=== PATIENT | female | born 1960 | race Caucasian/White ===

== ENCOUNTER 2018-02-09 08:37 | Day surgery (SDC) | payer BC ==
[~2018-02-09 08:37] MED LIST: Acetaminophen TAB* 325 MG PO PRN; Buffered Lidocaine 0.9% SYRIN* 5 ML/SYR SYRINGE INTRADERM ONE; Cyclopentolate 1% OPTH.SOL* 2 ML BTL ONE; Ketorolac 0.5% OPHTH (NF) 0.5 % 5 ML BTL ONE; Lidocaine 1%* 5 ML VIAL ONE; Neomycin/Polymy/Dex OPHTH.OIN* 3.5 GM ONE; Phenylephrine 2.5% OPTH.SOL* 2 ML BTL ONE; Povidone Iodine 5% OPTH* 30 ML BTL ONE; Tetracaine 0.5% OPTH.SOL 4 ML* 1 DROP BTL ONE; Tropicamide 1% OPTH.SOL* BTL ONE; Trypan Blue 0.06% SOL* 0.5 ML BTL ONE; acetaZOLAMIDE TAB* 250 MG ONE
[2018-02-09] MEDS ORDERED: Midazolam* 1 MG/ML 5 ML VIAL (5 MG) ONE (10:16)
[2018-02-09 11:29] VITALS: BP 142/68
--- NOTE | 2018-02-10 08:00 | OP ---
DATE OF OPERATION: 02/09/[address] - [facility] DATE OF : 58 SURGEON: Maciel Martinez MD. ANESTHESIA: Monitored anesthesia care. PRE-OP DIAGNOSIS: Mature cataract, right eye. POST-OP DIAGNOSIS: Mature cataract, right eye. OPERATIVE PROCEDURE: Extracapsular cataract extraction of the right eye with intraocular lens implant. IMPLANTS: SN60WF 20.5 diopter lens to the right eye. COMPLICATIONS: None. DESCRIPTION OF PROCEDURE: The patient was given phenylephrine 2.5% and cyclopentolate 1% eye drops to the operative eye in the preoperative area. The patient was brought to the operating room where a time-out was taken to identify the correct patient, site, and side of surgery. The patient's right eye was prepped and draped in the usual sterile fashion with 5% Betadine. A second time- out was taken to verify the correct patient, site, and side of surgery and correct lens selection. A lid speculum was placed to the right eye. A 1-mm paracentesis blade was used to make a clear corneal incision in the superotemporal position. Preservative free 1% lidocaine was injected into the anterior chamber. VisionBlue was then injected into the anterior chamber under a gas bubble in order to stay in the anterior capsule due to the mature cataract. Healon was then injected into the anterior chamber. A 2.75 mm keratome blade was used to make a triplanar incision at the inferotemporal position. A cystotome initiated a capsulorrhexis, which was completed with MST forceps in a continuous and curvilinear manner. Hydrodissection of the lens was performed with BSS on a cannula. The lens could be spun in the capsular bag. The phacoemulsification handpiece was used with a [id number]-anp-[id number] technique to remove the nucleus in its entirety with 32.48 CDE. The I/A handpiece then removed the residual cortical lens material. DisCoVisc was injected to inflate the capsular bag. The planned SN60WF 20.5 diopter lens was injected into the capsular bag. The residual DisCoVisc was removed from the eye with the I/A handpiece. The corneal incisions were hydrated and no leaks occurred at physiologic pressure around 20 mmHg per palpation. The lid speculum was removed and drapes removed. Maxitrol ointment was placed to the surface of the operative eye. An adhesive patch and shield was then placed on the operative eye. The patient was taken to the postoperative area in stable condition. [id number]/[facility] #: [id number] KRYSTAL
== END 2018-02-09 11:32 | disposition home or self-care (01) ==
LOC: OREAST 08:37
PROVIDERS: ATTEND Student in an Organized Health Care Education/Training Program
DX: H25.11 Age-related nuclear cataract, right eye (principal); F17.210 Nicotine dependence, cigarettes, uncomplicated; I10 Essential (primary) hypertension; E78.00 Pure hypercholesterolemia, unspecified; Z85.43 Personal history of malignant neoplasm of ovary
CPT/HCPCS: A9270-GY; J2250; V2632

== ENCOUNTER 2023-05-01 17:13 | Observation (INO) ==
[2023-05-01 17:42] LABS: ABS Basophils 0.1 10^3/uL (0.0-0.1); ABS Eosinophils 0.1 10^3/uL (0.0-0.5); ABS Lymphocytes 2.8 10^3/uL (1.0-4.8); ABS Monocytes 1.5 10^3/uL (0.0-0.9); ABS Neutrophils 9.3 10^3/uL (1.5-7.6); ABS Nucleated RBC 0.02 10^3/ul; Hematocrit 41.4 % (35-45); Hemoglobin 13.7 g/dL (11.5-14.3); Lymphocyte % 19.9 %; Mean Corpuscular Hemoglobin 27.9 pg (27-33); Mean Corpuscular Volume 84.6 fL (80-97); Nucleated Red Blood Cells % 0.1 /100 WBC (0.0-0.4); Platelet Count 232 10^3/uL (150-450); Red Cell Distribution Width 15.2 % (12-17); White Blood Count 13.9 10^3/uL (3.8-11.8)
[2023-05-01 17:49] LABS: INR 1.07 (0.88-1.18)
[2023-05-01 17:58] LABS: Albumin 4.7 g/dL (3.2-5.2); Albumin/Globulin Ratio 1.4 (1-3); Creatinine, Serum 1.09 mg/dL (0.51-0.95); Globulin 3.4 g/dL (2-4); Potassium 4.1 mmol/L (3.5-5.0); Total Bilirubin 0.3 mg/dL (0.2-1.0); Total Protein 8.1 g/dL (6.4-8.9); eGFR CKD-EPI 57.1 (>60)
[2023-05-01 19:02] LABS: High Sensitivity Troponin 1 Hr 193 pg/mL (<15)
[2023-05-01] MEDS ORDERED: Iodixanol (CONTRAST) 320 MG/ML 100 ML SDV IV ONE (20:23)
[2023-05-01] MEDS ORDERED: Heparin DRIP 25,000 UNITS BAG 25,000 UNITS/500 ML BAG IV SCH (23:45)
[2023-05-02 00:34] LABS: HDL Cholesterol 54.1 mg/dL
[2023-05-02] MEDS: Heparin 5000 UNITS/ML 1 mL VIAL IV SCH ×2 (01:11→07:46)
[2023-05-02 07:28] LABS: Albumin 3.9 g/dL (3.2-5.2); Albumin/Globulin Ratio 1.3 (1-3); Creatinine, Serum 1.1 mg/dL (0.51-0.95); Globulin 3.1 g/dL (2-4); Magnesium 2.1 mg/dL (1.9-2.7); Potassium 4.1 mmol/L (3.5-5.0); Total Bilirubin 0.4 mg/dL (0.2-1.0); eGFR CKD-EPI 56.5 (>60)
[2023-05-02 07:30] LABS: Activated Partial Thrombo Time 32.6 seconds (26.0-38.0); INR 1.05 (0.88-1.18)
[2023-05-02] MEDS: Aspirin EC 81 mg TAB.EC (enteric coated) PO SCH (09:43)
[2023-05-02] MEDS ORDERED: Midazolam 5 mg/5 ml VIAL 1 mg/ml 5 ml VIAL (5 mg) ONE (14:12)
[2023-05-02] MEDS ORDERED: fentaNYL 100 mcg/2 ml 50 MCG/ML VIAL ONE (14:12)
[2023-05-02] MEDS ORDERED: VERAPAMIL 2.5 MG/ML 2 ML VIAL ** 5 mg/2 ml ONE (14:12)
[2023-05-02] MEDS ORDERED: Iohexol 350 (CONTRAST) 200 ML MDV IV ONE (14:13)
[2023-05-02] MEDS ORDERED: Heparin 2 UNITS/ML 1000 mls 2,000 ML IV ONE (14:13)
[2023-05-02] MEDS ORDERED: Heparin 1,000 UNIT/ML 10 ml (10,000 UNITS) CATHLAB/DIALYSIS ONE (14:13)
[2023-05-02] MEDS ORDERED: nitroGLYCERIN DRIP 25,000 MCG/250 ML BTL ONE (14:13)
[2023-05-02] MEDS ORDERED: Lidocaine 1% MPF 5 ML VIAL ONE (14:14)
[2023-05-02] MEDS ORDERED: NS 0.9% 1000 ml BAG 1,000 ML IV SCH (16:00)
[2023-05-03] MEDS: Heparin 5000 UNITS/ML 1 mL VIAL IV SCH ×2 (00:35→07:15)
[2023-05-03 06:34] LABS: ABS Basophils 0.1 10^3/uL (0.0-0.1); ABS Eosinophils 0.2 10^3/uL (0.0-0.5); ABS Lymphocytes 2.7 10^3/uL (1.0-4.8); ABS Monocytes 1.1 10^3/uL (0.0-0.9); ABS Neutrophils 6.3 10^3/uL (1.5-7.6); Eosinophil % 1.9 %; Hematocrit 36.7 % (35-45); Hemoglobin 12.1 g/dL (11.5-14.3); Mean Corpuscular Hemoglobin 27.9 pg (27-33); Mean Corpuscular Volume 84.4 fL (80-97); Mean Platelet Volume 10.1 fL (7.5-11.2); Platelet Count 195 10^3/uL (150-450); Red Blood Count 4.35 10^6/uL (3.63-4.92); Red Cell Distribution Width 15.2 % (12-17); White Blood Count 10.4 10^3/uL (3.8-11.8)
[2023-05-03 06:50] LABS: Calcium 8.8 mg/dL (8.6-10.3); Creatinine, Serum 1.06 mg/dL (0.51-0.95); Potassium 3.8 mmol/L (3.5-5.0)
[2023-05-03 07:07] VITALS: BP 121/60
[2023-05-03] MEDS: Aspirin EC 81 mg TAB.EC (enteric coated) PO SCH (08:53)
== END 2023-05-03 08:45 | disposition short-term general hospital (02) ==
LOC: ED 17:13 → EDHOLD 17:13 → SUATTDRO 22:34 → MEDTELE 05-02 02:35
PROVIDERS: ADMIT Internal Medicine; ATTEND Internal Medicine